=== PATIENT | female | born 1980 | race Caucasian/White ===

== ENCOUNTER 2018-02-25 00:35 | Observation (INO) | payer MEDICARE ==
[2018-02-25] MEDS ORDERED: Dexamethasone 10 MG/ML VIAL ONE (00:56)
[2018-02-25] MEDS ORDERED: Ondansetron ODT 4 MG TAB ONE (01:36)
[2018-02-25 02:51] VITALS: BMI 22.7
[2018-02-25] MEDS ORDERED: Ondansetron HCl/PF 4 MG/2 ML Vial IVP PRN (02:52)
[2018-02-25] MEDS ORDERED: Ondansetron ODT 4 MG TAB SL PRN (02:52)
[2018-02-25] MEDS: D5 1/2 NS w/20 mEq KCL 1,000 ML IV SCH ×3 (03:58→17:02)
[2018-02-25] MEDS ORDERED: Prevnar 13-Val Conj/PF 0.5 ML SYRINGE IM ONE (09:00)
[2018-02-25] MEDS ORDERED: Dexamethasone 10 MG/ML VIAL SLOW IVP SCH (10:00)
[2018-02-25] MEDS ORDERED: HYDROcodone/Acetaminophen 5/325 mg Tablet PO PRN (15:00)
[2018-02-25] MEDS ORDERED: HYDROcodone/Acetaminophen 10/325 mg Tablet PO PRN (15:00)
[2018-02-25] MEDS ORDERED: Acetaminophen 325 MG TAB PO PRN (15:00)
[2018-02-25] MEDS ORDERED: Ondansetron ODT 4 MG TAB PO PRN (15:00)
[2018-02-25] MEDS ORDERED: Dexamethasone 4 mg/ml Vial SLOW IVP SCH (15:15)
[2018-02-25] MEDS: metroNIDAZOLE 500 MG in Premix Bag 1 BAG IVPB SCH (18:29)
[2018-02-25] MEDS: Ondansetron HCl/PF 4 MG/2 ML Vial IVP PRN (19:10)
[2018-02-25] MEDS: Famotidine/PF 20 mg/2ml Vial SLOW IVP SCH (21:31)
[2018-02-25] MEDS: Amitriptyline HCl 25 MG TAB PO SCH (21:31)
[2018-02-25] MEDS: Dexamethasone 4 mg/ml Vial SLOW IVP SCH (21:38)
[2018-02-26] MEDS: D5 1/2 NS w/20 mEq KCL 1,000 ML IV SCH ×4 (00:29→21:28)
[2018-02-26] MEDS: metroNIDAZOLE 500 MG in Premix Bag 1 BAG IVPB SCH ×3 (00:30→12:12)
[2018-02-26] MEDS: Ondansetron HCl/PF 4 MG/2 ML Vial IVP PRN ×2 (01:12→12:43)
[2018-02-26 05:18] LABS: #Lymphocytes 0.6 thou/uL (1.20-3.40); #Monocytes 0.2 thou/uL (0.11-0.59); #Neutrophils 2.8 thou/uL (1.40-6.50); %Basophils 0.8 % (0.0-1.0); %Eosinophils 0.1 % (0.0-10.0); %Neutrophils 78.1 % (42.0-75.0); Hemoglobin 9.9 g/dL (12.0-16.0); Mean Corpuscular HGB CONC 33.2 g/dL (32.0-36.0); Mean Corpuscular Hemoglobin 31.3 pg (27.0-31.0); Mean Corpuscular Volume 94.3 fL (78.0-98.0); Mean Platelet Volume 7.7 fL (7.4-10.4); Platelet Count 201 thou/uL (130-400); RBC Distribution Width 12.4 % (11.5-14.5); Red Blood Cell (RBC) Count 3.17 mill/uL (4.20-5.40); White Blood Cell (WBC) Count 3.6 thou/uL (4.8-10.8)
[2018-02-26 05:44] LABS: ALT (SGPT) 26 U/L (8-55); AST (SGOT) 17 U/L (5-34); Albumin 3.4 g/dL (3.5-5.0); Alkaline Phosphatase 60 U/L (40-150); Anion Gap 12 mmol/L (10-20); BUN (Urea Nitrogen) 15 mg/dL (7.0-18.7); Bilirubin, Total 0.9 mg/dL (0.2-1.2); Calc. Creatinine Clearance 131 mL/min (70-130); Calcium 8.4 mg/dL (7.8-10.44); Carbon Dioxide 20 mmol/L (22-29); Cardiac Risk 3.5 (Less than 4.5); Chloride 107 mmol/L (98-107); Cholesterol 112 mg/dl (< 200 Desired); Estimated GFR-MDRD Greater than 90; Globulin 2.5 g/dL (2.4-3.5); Glucose 171 mg/dL (70-105); HDL Cholesterol 32 mg/dL (>60 Neg Risk); LDL Cholesterol, Calculated 66 mg/dL; Lipase 92 U/L (8-78); Magnesium 2.1 mg/dL (1.6-2.6); Potassium 4.1 mmol/L (3.5-5.1); Protein, Total 5.9 g/dL (6.0-8.3); Sodium 135 mmol/L (136-145); Triglycerides 72 mg/dL (Less than 150)
[2018-02-26] MEDS: Dexamethasone 4 mg/ml Vial SLOW IVP SCH ×3 (06:04→21:10)
[2018-02-26] MEDS: Hydroxychloroquine Sulfate 200 MG TAB PO SCH (08:30)
[2018-02-26] MEDS: Famotidine/PF 20 mg/2ml Vial SLOW IVP SCH ×2 (08:30→21:07)
[2018-02-26] MEDS: Leflunomide 10 mg Tablet PO SCH (08:30)
--- NOTE | 2018-02-26 10:00 | CON ---
DATE OF CONSULTATION: 02/25/2018 REFERRING PHYSICIAN: Dr. Rosa Lala, [facility] Hospitalist. REASON FOR CONSULTATION: Abdominal pain, nausea and vomiting and abdominal CAT scan showing what sydnee eared to be pancolitis. HISTORY OF PRESENT ILLNESS: Ms. Ya Gautam is a very pleasant 37-year-old female with a h istory of rheumatoid arthritis, fibromyalgia, and also Sjogren's syndrome. She also has history of s ystemic lupus, scleroderma. The patient does see a dural mechanic in [place] off and on. The nydia ent is on prednisone 2.5 mg once a day and also leflunomide and tramadol etc. 600. The patient was t reated with biological and she did not get relief with biological. The patient tells me she did resp ond to Rituxan, but however she is not able to take it because her insurance company does not approve her Rituxan. She used to take prednisone off and on, and now she is on maintenance dose of 2.5 mg o nce a day. The patient developed abdominal pain, which is cramping in nature; and some fever, nausea , and vomiting approximately 10 days ago. The pain was more diffuse and achy and at times cramping i n nature. She also had fever with nausea and vomiting. She came to [place] [facility] and had routine checkup done. It was felt that the patient probably needs a higher dose of prednisone and her predni sone was increased to 20 mg p.o. once a day and was sent home. The patient never felt well over the last 10 days. She has been having abdominal pain off and on and also had some diarrhea intermittentl y. Yesterday, her abdominal pain started getting lot worse and she actually passed out. The patient was brought to the ER by the family because of poor nutrition. The patient had no similar episodes in the past. The patient denies any hematochezia, any melena. The patient has had no previous GI pr oblem. Does have occasional episodes of food hanging in the esophagus because of scleroderma. She h ad no heartburn, no indigestion. No painful swallowing. The patient came to the ER and had abdomina l CAT scan. The CAT scan basically shows thickening of the mesentery and it was felt that the patien t has pancolitis. The patient is on IV steroids at the present time. She is n.p.o. Her abdominal p ain is much less than before. Apparently she received 2 mg of morphine earlier today and she said th e pain is a lot less. The patient has no relevant history. ALLERGIES: SULFA. SOCIAL HISTORY: The patient is employed. She does smoke less than one-half packet of cigarettes per day. Does not drink any alcohol. No illicit drug abuse. She did not feel like smoking because of her abdominal pain and nausea for over the last 10 days. MEDICAL ILLNESSES: 1. Rheumatoid arthritis. 2. Fibromyalgia. 3. Sjogren's syndrome. 4. Lupus erythematosus, scleroderma. SURGERIES: 1. Status post x3. 2. She has had recurrent surgery of both hands by Dr. Healy in July or August 2017. No o ther surgeries. FAMILY HISTORY: Both maternal grandmother and father had lung cancer, both were smokers. Mother has rheumatoid arthritis and her sister has early signs of rheumatoid arthritis. Mother also has celiac disease. MEDICATIONS: List reviewed which include dexamethasone, morphine sulfate, Zofran, potassium suppleme nt. Home medicines include tramadol, prednisone 20 once a day, leflunomide, etc. REVIEW OF SYSTEMS: A 10-point system reviewed. Constitutional: History of fever over the last nilo ral days off and on. No history of any weight loss. Central nervous system: No history of chronic headache, no syncope, no TIA, no seizure disorder. Respiratory system: No history of chronic cough, hemoptysis, dyspnea. Cardiovascular system: No chest pain, no palpitation. No dyspnea, orthopnea, or PND. Gastrointestinal: As per history of present illness. Genitourinary: No dysuria, hematuri a. Musculoskeletal: History of chronic arthralgias and muscle pain. Neuropsychiatric: Unremarkabl e. PHYSICAL EXAMINATION: GENERAL: The patient appears very comfortable. She is awake, alert, oriented to time, place, and pe rson. VITAL SIGNS: Afebrile. Pulse is 60, blood pressure 127/84. HEENT: Conjunctivae clear. NECK: Supple. No adenitis or thyromegaly noted. CARDIOVASCULAR SYSTEM: First and second heart sounds normal. LUNGS: Clear to auscultation. ABDOMEN: Abdomen is soft. Abdomen is nondistended. Abdomen is mildly tender diffusely. There is n o rebound or guarding. No organomegaly or masses. Bowel sounds normal. EXTREMITIES: Reveal no edema. LABORATORY DATA: Shows WBC 8200, hemoglobin 12, hematocrit 35, MCV 88.5, platelet count 217,000, neena ymorphs 83, bands 10, lymphocytes 3. Serum chemistries: Sodium 141, potassium 3, chloride 104, bic arb 19, BUN is 22, creatinine 0.71, glucose 116, lactic acid 2.2, calcium 9.1, bilirubin 1.7, AST 38, ALT 45, alkaline phosphatase 77, total protein 6.9, albumin 4.1, globulin 2.8. Lipase is slightly h igh at 153. Abdominal CAT scan showed some thickening of mesentery and it was felt the patient has pancolitis. T here are couple of small low-density lesions seen in right lobe of the liver, possibly liver cyst. S he has also borderline splenomegaly. CLINICAL IMPRESSION: A 37-year-old female with abdominal pain, history of fever, and also history of nausea and vomiting off and on. She also had some diarrhea off and on. The patient has h istory of rheumatoid arthritis, lupus, scleroderma. I am not sure if her symptoms are due to relapse of her autoimmune disease or some infectious pathology. She also has mildly elevated lipase of 153. RECOMMENDATIONS: 1. Continue present treatment. 2. Clear liquid diet and advance diet as tolerated. I will make further recommendations depending o n the hospital course.
[2018-02-26] MEDS: metroNIDAZOLE 500 MG TAB PO SCH ×2 (16:02→21:07)
--- NOTE | 2018-02-26 18:23 | PDOC.PN ---
- Subjective Encounter Start Date: 02/26/18 Encounter Start Time: 10:00 Pt seen for followup re: nausea and vomiting. Nausea is better. No chest pain , shortness of breath, fevers or chills. Abdo pain better. - Objective Resuscitation Status: Resuscitation Status FULL:Full Resuscitation MAR Reviewed: Yes Vital Signs & Weight: Vital Signs (12 hours) Temp Pulse Resp BP Pulse Ox 02/26/18 11:42 97.7 F 68 16 113/74 99 02/26/18 08:00 97.8 F 53 L 16 02/26/18 07:45 97.8 F 53 L 16 154/95 H 98 Weight Admit Weight 145 lb 3 oz Weight 145 lb 3 oz I&O: 02/25/18 02/26/18 02/27/18 06:59 06:59 06:59 Intake Total 1 3053 344.5 Balance 1 3053 344.5 Result Diagrams: 02/26/18 04:13 02/26/18 04:13 Additional Labs: Labs reviewed by me Phys Exam - Physical Examination Constitutional: NAD HEENT: moist MMs, sclera anicteric, oral pharynx no lesions, 2+ tonsils Neck: no nodes, no JVD, supple, full ROM Respiratory: no wheezing, no rales, no rhonchi, clear to auscultation bilateral Cardiovascular: RRR, no rub S1, S2 Gastrointestinal: soft, no distention, positive bowel sounds mild LLQ tenderness, no guarding or rigidity Neurological: moves all 4 limbs Psychiatric: normal affect, A&O x 3 Dx/Plan (1) Nausea and vomiting Code(s): R11.2 - NAUSEA WITH VOMITING, UNSPECIFIED Status: Acute Comment: Pt clinically improving, able to take oral meds and full fluid diet. (2) Mesenteric panniculitis Code(s): K65.4 - SCLEROSING MESENTERITIS Status: Acute Comment: switch antibiotics to oral (3) Chronic steroid use Code(s): [id number] - Status: Chronic Comment: Pt is on increased dose of steroids, continue dexamethasone (4) Rheumatoid arthritis Code(s): M06.9 - RHEUMATOID ARTHRITIS, UNSPECIFIED Status: Chronic Comment: stable (5) Sjogrens syndrome Code(s): M35.00 - SICCA SYNDROME, UNSPECIFIED Status: Chronic Comment: stable (6) Raynaud disease Code(s): I73.00 - RAYNAUD'S SYNDROME WITHOUT GANGRENE Status: Chronic Comment: stable (7) SLE (systemic lupus erythematosus) Code(s): M32.9 - SYSTEMIC LUPUS ERYTHEMATOSUS, UNSPECIFIED Status: Chronic Comment: stable (8) Fibromyalgia Status: Chronic Comment: stable - Plan * . Review of Systems - Review of Systems Constitutional: weakness. negative: fever, chills, sweats, malaise Respiratory: negative: Cough, Shortness of Breath, SOB with Excertion, Pleuritic Pain, Wheezing Cardiovascular: negative: chest pain, palpitations, orthopnea, paroxysmal nocturnal dyspnea, edema, light headedness Gastrointestinal: Nausea, Vomiting, Abdominal Pain. negative: Diarrhea, Constipation, Melena, Hematochezia Genitourinary: negative: Dysuria, Frequency, Incontinence, Hematuria, Retention Skin: negative: Rash, Lesions, Ari, Bruising - Medications/Allergies Allergies/Adverse Reactions: Allergies Allergy/AdvReac Type Severity Reaction Status Date / Time Sulfa (Sulfonamide Allergy Verified 02/25/18 03:44 Antibiotics) Medications: Current Medications Acetaminophen (Tylenol) 650 mg PO Q4H PRN PRN Reason: Headache/Fever or Pain Last Admin: 02/26/18 08:29 Dose: 650 mg Hydrocodone Bitart/Acetaminophen ([place] 10/325) 1 tab PO Q4H PRN PRN Reason: Severe Pain (7-10) Last Admin: 02/25/18 17:10 Dose: 1 tab Hydrocodone Bitart/Acetaminophen ([employer] [place] 5/325) 1 tab PO Q4H PRN PRN Reason: Moderate Pain (4-6) Amitriptyline HCl (Elavil) 25 mg PO HS [facility] Last Admin: 02/25/18 21:31 Dose: 25 mg Dexamethasone (Decadron) 10 mg SLOW IVP Q8HR [facility] Last Admin: 02/26/18 14:12 Dose: 10 mg Dicyclomine HCl (Bentyl) 10 mg IM QID PRN PRN Reason: GI Cramping Famotidine (Pepcid) 20 mg SLOW IVP Q12HR [facility] Last Admin: 02/26/18 08:30 Dose: Not Given Hydroxychloroquine Sulfate (Plaquenil) 200 mg PO DAILY [facility] Last Admin: 02/26/18 08:30 Dose: 200 mg Potassium [place]/Dextrose/Sod Cl (D5 1/2 Ns W/20 Meq Kcl) 1,000 mls @ 125 mls /hr IV .Q8H [facility] Last Admin: 02/26/18 10:52 Dose: 1,000 mls Leflunomide (Arava) 20 mg PO DAILY [facility] Last Admin: 02/26/18 08:30 Dose: 20 mg Levofloxacin (Levaquin) 500 mg PO 0600 [facility] Metronidazole (Flagyl) 500 mg PO TID [facility] Last Admin: 02/26/18 16:02 Dose: 500 mg Ondansetron HCl (Zofran Odt) 4 mg PO Q6H PRN PRN Reason: Nausea/Vomiting Ondansetron HCl (Zofran) 4 mg IVP Q6H PRN PRN Reason: Nausea/Vomiting Last Admin: 02/26/18 12:43 Dose: 4 mg
[2018-02-26] MEDS: Amitriptyline HCl 25 MG TAB PO SCH (21:07)
--- NOTE | 2018-02-27 01:23 | PRG ---
DATE OF SERVICE: 02/26/2018 SUBJECTIVE: Ms. Prashant Gautam is a very pleasant 37-year-old female hospitalized [facility] of abdominal pain, CAT scan findings shows pancolitis. She also has some low-grade fever off and o n. The patient was on clear liquid diet yesterday and did well. Today, her diet was advanced to reg ular diet. Abdominal pain is markedly improved. She has very mild discomfort. No nausea, except oc casionally. PHYSICAL EXAMINATION: GENERAL: Appears comfortable. VITAL SIGNS: Afebrile. Pulse is 68, blood pressure 113/74. CARDIOVASCULAR SYSTEM: First and second heart sounds normal. LUNGS: Clear to auscultation. ABDOMEN: Soft. Abdomen is nondistended. Abdomen is mildly tender across lower abdomen. No organom egaly or masses. CLINICAL IMPRESSION: 1. Pancolitis. 2. History of rheumatoid arthritis. 3. Scleroderma-lupus. She is on IV Levaquin and also IV steroids. She has family history of celiac disease, sister has celiac disease. She also has introduction on this. We will obtain celiac panel tomorrow.
[2018-02-27 05:01] VITALS: TEMP 97.7
[2018-02-27] MEDS: Dexamethasone 4 mg/ml Vial SLOW IVP SCH (06:07)
[2018-02-27] MEDS: D5 1/2 NS w/20 mEq KCL 1,000 ML IV SCH ×2 (06:10→15:15)
[2018-02-27] MEDS: metroNIDAZOLE 500 MG TAB PO SCH ×2 (08:26→15:15)
[2018-02-27] MEDS: Hydroxychloroquine Sulfate 200 MG TAB PO SCH (08:26)
[2018-02-27] MEDS: Leflunomide 10 mg Tablet PO SCH (08:26)
[2018-02-27] MEDS: Famotidine/PF 20 mg/2ml Vial SLOW IVP SCH (10:32)
--- NOTE | 2018-02-27 10:39 | PDOC.PN ---
- Subjective Encounter Start Date: 02/27/18 Encounter Start Time: 11:30 Subjective: Patient reports resolution of her abdominal pain. Minimal nausea and -: no vomiting since admit. Tolerating diet this AM. Ready to go home. Has -: prednisone at home and knows how to titrate down slowly. - Objective Resuscitation Status: Resuscitation Status FULL:Full Resuscitation MAR Reviewed: Yes Vital Signs & Weight: Vital Signs (12 hours) Temp Pulse Resp BP Pulse Ox 02/27/18 07:23 97.7 F 50 L 20 156/90 H 99 02/27/18 04:00 97.7 F 50 L 18 135/92 H 99 02/27/18 00:47 97.8 F 65 18 130/79 98 Weight Admit Weight 145 lb 3 oz Weight 145 lb 3 oz I&O: 02/26/18 02/27/18 02/28/18 06:59 06:59 06:59 Intake Total 3053 344.5 Balance 3053 344.5 Result Diagrams: 02/26/18 04:13 02/26/18 04:13 Phys Exam - Physical Examination Constitutional: NAD HEENT: moist MMs Respiratory: no wheezing, no rales, no rhonchi Cardiovascular: RRR, no significant murmur Gastrointestinal: soft, positive bowel sounds minimal tenderness, no guarding Musculoskeletal: no edema Neurological: non-focal, moves all 4 limbs Psychiatric: normal affect, A&O x 3 Dx/Plan (1) Mesenteric panniculitis Code(s): K65.4 - SCLEROSING MESENTERITIS Status: Acute Comment: Now or oral Levquin and Flagyl (2) Nausea and vomiting Code(s): R11.2 - NAUSEA WITH VOMITING, UNSPECIFIED Status: Acute Comment: Pt clinically improving, able to take oral meds and full fluid diet. (3) Chronic steroid use Code(s): [id number] - Status: Chronic Comment: Pt is on increased dose of steroids, stop IV dexamethasone and start oral prednisone (4) Fibromyalgia Status: Chronic Comment: stable (5) Raynaud disease Code(s): I73.00 - RAYNAUD'S SYNDROME WITHOUT GANGRENE Status: Chronic Comment: stable (6) Rheumatoid arthritis Code(s): M06.9 - RHEUMATOID ARTHRITIS, UNSPECIFIED Status: Chronic Comment: stable (7) SLE (systemic lupus erythematosus) Code(s): M32.9 - SYSTEMIC LUPUS ERYTHEMATOSUS, UNSPECIFIED Status: Chronic Comment: stable (8) Sjogrens syndrome Code(s): M35.00 - SICCA SYNDROME, UNSPECIFIED Status: Chronic Comment: stable - Plan cont current plan of care, continue antibiotics Ok to d/c home. 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 * . - Discharge Day Encounter end time: 11:50
[2018-02-27 11:10] VITALS: BP 134/88
--- NOTE | 2018-02-28 02:09 | DIS ---
PRIMARY CARE PHYSICIAN: [facility] in [place]. REASON FOR ADMISSION: Abdominal pain, nausea, and vomiting. DISCHARGE DIAGNOSES: 1. Mesenteric panniculitis. 2. Nausea and vomiting, resolved. 3. Chronic steroid use. 4. Fibromyalgia. 5. Raynaud's disease. 6. Rheumatoid arthritis. 7. Lupus. 8. Sjogren syndrome. PROCEDURES: CT of the abdomen and pelvis with contrast showing no evidence of appendicitis, borderli ne splenomegaly, probable mesenteric panniculitis, and indeterminate lesions of the liver. CONSULTATIONS: Gastroenterology, Dr. Yanez. SUMMARY OF HOSPITAL COURSE: This is a 37-year-old white female with a history of rheumatoid arthriti s, fibromyalgia, Sjogren syndrome, and lupus on chronic steroids and other immunosuppressants. She p resented to the [place] [facility] with fever, nausea, and vomiting starting about a week pr evious, pain got worse. She was seen at the [place] [facility], had an increased in her salma roids and was sent home. She returned about 10 days later, had been worsening abdominal pain, and al so with some diarrhea, so she had a CT scan of the abdomen which resolved and she was transferred for admission and GI consultation. Dr. Yanez was consulted. Patient was treated with antibiotics, steroids with improvement in her symptoms. She had resolution of her nausea, vomiting, and abdominal pain was markedly better, not requiring any pain medicines on the day of discharge. Dr. Beau shah etermined that this was likely related to her lupus and not primarily gastroenterological in origin. She was transitioned to oral antibiotics and was being discharged home. DISCHARGE MANAGEMENT: Discharged home. Follow up with her outpatient senior python developer in 1 week for a djustment of her steroids. ACTIVITY: As tolerated. DIET: Regular diet. DISCHARGE MEDICATIONS: 1. Levofloxacin 500 mg daily for 3 more days. 2. Metronidazole 500 mg 3 times a day for 3 more days. 3. Zofran 4 mg every 6 hours as needed for nausea and vomiting. 4. Prednisone 20 mg daily, separate packet dispensed. Patient is to resume her other home medications: 1. Amitriptyline 25 mg at night. 2. Plaquenil 200 mg daily. 3. Arava 20 mg daily.
--- NOTE | 2018-02-28 07:56 | PRG ---
DATE OF SERVICE: 02/27/2018 SUBJECTIVE: This is a 38-year-old female with history of scleroderma, lupus, rheumatoid ar thritis. Hospitalized with abdominal pain, nausea, vomiting and diarrhea. She was placed on systemi c steroids and symptoms markedly improved. She has no more abdominal pain. She is tolerating diet. She has one stool today, nausea and vomiting. PHYSICAL EXAMINATION: GENERAL: She appears comfortable, afebrile. VITAL SIGNS: Pulse is 57, blood pressure 134/88. HEENT: Conjunctivae clear. CARDIOVASCULAR SYSTEM: First and second heart sounds normal. LUNGS: Clear to auscultation. ABDOMEN: Soft. Abdomen is nontender. No organomegaly. No masses. RECOMMENDATIONS: The patient is going to be discharge home on systemic steroids. The patient will c ome back to me as needed.
[2018-02-28] MEDS ORDERED: predniSONE 20 MG TAB PO SCH (08:00)
[2018-02-28 13:10] LABS: EliA Celiac New Method **** NEW METHOD ****; Gliadin IgA Ab, Deamidated 2.9 EliAU/mL (<7 Negative); Gliadin IgG Ab, Deamidated Less than 0.4 EliAU/mL (<7 Negative); t-Transglutaminase (tTG) IgA 0.5 EliAU/mL (<7 Negative); t-Transglutaminase (tTG) IgG 0.8 EliAU/mL (<7 Negative)
== END 2018-02-27 14:47 | disposition home or self-care (01) ==
LOC: ERS 00:35 → T4-A 01:08
PROVIDERS: ADMIT Hospitalist; ATTEND Hospitalist
DX: K65.4 Sclerosing mesenteritis (principal); M79.7 Fibromyalgia; I73.00 Raynaud's syndrome without gangrene; M06.9 Rheumatoid arthritis, unspecified; M35.00 Sjogren syndrome, unspecified; F17.210 Nicotine dependence, cigarettes, uncomplicated; L93.0 Discoid lupus erythematosus; Z88.2 Allergy status to sulfonamides; Z79.52 Long term (current) use of systemic steroids
CPT/HCPCS: 80053; 80061; 83516; 83690; 83735; 85025; 96361 ×2; 96365; 96366; 96367; 96375 ×2; 96376 ×3; 97139; 99285; 99406; G0378 ×3; 36415; 90471; 90670; 96374; G0009; J1100; J1956; J2270; J2405; Q0162; S0028

== ENCOUNTER 2018-07-30 17:00 | Inpatient (IN) | payer MEDICARE ==
[2018-07-30] MEDS ORDERED: Ondansetron PF 4 MG/2 ML Vial IVP PRN (17:30)
[2018-07-30] MEDS ORDERED: hydrALAZINE 20 MG/ML VIAL SLOW IVP PRN (17:30)
[2018-07-30] MEDS ORDERED: Ondansetron ODT 4 MG TAB PO PRN (17:30)
[2018-07-30] MEDS ORDERED: Acetaminophen 1,000 MG in Premix Bag 1 BAG IVPB PRN (17:34)
[2018-07-30] MEDS ORDERED: Ondansetron ODT 8 MG TAB SL PRN (17:34)
[2018-07-30] MEDS ORDERED: Morphine 2 MG/ML SYRINGE ONE (18:01)
[2018-07-30] MEDS ORDERED: MEROPENEM 1 GM/50 ML 1 GM in Premix Bag 1 BAG IVPB SCH (18:15)
[2018-07-30 19:21] LABS: INR-International Normal Ratio 1.1; Prothrombin Time 14.5 SEC (12.0-14.7)
[2018-07-30 19:22] LABS: PTT 33.6 SEC (22.9-36.1)
[2018-07-30 20:04] VITALS: BMI 22.8
[2018-07-30] MEDS: Lactated Ringer's 1,000 ML IV SCH (20:14)
[2018-07-30] MEDS: Famotidine/PF 20 mg/2ml Vial SLOW IVP SCH (20:19)
[2018-07-30] MEDS ORDERED: Enoxaparin Sodium 40 MG/0.4 ML SYRINGE SC SCH (21:00)
[2018-07-30] MEDS ORDERED: Amitriptyline HCl 25 MG TAB PO SCH (21:00)
[2018-07-30] MEDS: Hydrocortisone Sod Succ/PF 100 mg/2 ml Vial IVP SCH (21:07)
[2018-07-30] MEDS: Ketorolac Tromethamine 30 MG/ML VIAL IVP PRN (21:25)
--- NOTE | 2018-07-31 00:12 | HP ---
HISTORY OF PRESENT ILLNESS: Prashant Kirk is a 38-year-old female transferred from [facility] to our emergency room with biliary pancreatitis. Ultrasound there in [place] revealed choleli thiasis, positive sonographic Avelar sign, 3 mm bile duct. Her lipase was elevated, liver function t ests normal. She has had pains episodically the last few weeks. She thought this episode was just d ue to her lupus flare up that she had pains elsewhere. She is being admitted for intravenous fluid h ydration, antibiotics, and laparoscopic cholecystectomy, cholangiogram tomorrow. Risks and benefits explained, questions answered. ALLERGIES: SULFA. TOBACCO: One half pack per day. ALCOHOL: None. PAST SURGICAL HISTORY: Three C-sections, tonsillectomy, adenoidectomy, hand surgery. PAST MEDICAL HISTORY: Systemic discoid lupus, rheumatoid arthralgias, myositis, scleroderma, Raynaud 's. 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 REVIEW OF SYSTEMS: Ten-point noncontributory. MEDICATIONS: P.r.n. tramadol, prednisone 20 mg a.m. with meals and 2.5 mg p.o. q.a.m. with meals, Fl agyl 500 mg t.i.d., Zofran p.r.n. She had Levaquin this morning at 6:00, Arava 20 mg daily, Plaqueni l 200 mg daily, Elavil 25 mg at bedtime. PHYSICAL EXAMINATION: VITAL SIGNS: Blood pressure 120/79, pulse 84, respirations 18, temperature 97.7, weight 66 kilograms . HEAD, EYES, EARS, NOSE AND THROAT: Unremarkable. LUNGS: Clear to auscultation. CARDIAC: Regular rate and rhythm without murmur or gallop. ABDOMEN: Soft, tenderness in right upper quadrant to deep palpation. Negative Avelar's. EXTREMITIES: Unremarkable. LABORATORY DATA: Laboratories from [place] 2:00 this afternoon, white count 6, hemoglobin 11.7. Sodium 138, potassium 3.9, BUN and creatinine 16 and 0.64, GFR 90, bilirubin 1.1, AST and ALT 26 an d 33, alkaline phosphatase 105, lipase . ASSESSMENT AND PLAN: Biliary pancreatitis. Plan IV fluid hydration relatively n.p.o. Plan laparoscopic cholecystectomy. Cholangiogram is tomor row. Risks and benefits discussed, she consents.
[2018-07-31] MEDS: Lactated Ringer's 1,000 ML IV SCH ×3 (01:02→05:00)
[2018-07-31] MEDS: Hydrocortisone Sod Succ/PF 100 mg/2 ml Vial IVP SCH (05:46)
[2018-07-31] MEDS ORDERED: Non-Formulary Item 1 EACH (Prednisone [Prednisone] 2.5 MG) PO SCH (08:00)
[2018-07-31] MEDS ORDERED: Iothalamate Meglumine 60% 50 ML VIAL FS ONE (08:47)
[2018-07-31] MEDS ORDERED: Bupivacaine HCl 0.5%/Epinephrine 1:200,000/PF 30 ml Vial ONE (08:47)
[2018-07-31] MEDS ORDERED: Fentanyl 100 MCG/2 ML VIAL ONE ×3 (08:49→10:51)
[2018-07-31] MEDS ORDERED: Hydroxychloroquine Sulfate 200 MG TAB PO SCH (09:00)
[2018-07-31] MEDS ORDERED: Leflunomide 10 mg Tablet PO SCH (09:00)
[2018-07-31] MEDS: Famotidine/PF 20 mg/2ml Vial SLOW IVP SCH (10:00)
[2018-07-31] MEDS ORDERED: Promethazine HCl 25 MG/ML VIAL ONE (10:20)
[2018-07-31] MEDS ORDERED: Ondansetron ODT 8 MG TAB PO PRN (10:22)
[2018-07-31] MEDS ORDERED: traMADol HCl 50 MG TAB PO PRN ×2 (10:22)
[2018-07-31] MEDS ORDERED: Acetaminophen 500 MG TAB PO PRN (10:22)
[2018-07-31] MEDS ORDERED: Ondansetron ORAL SOLN. 4 MG/5 ML UDCUP PO PRN (10:22)
[2018-07-31] MEDS ORDERED: Ondansetron HCl/PF 4 MG/2 ML Vial IVP PRN (10:25)
[2018-07-31] MEDS ORDERED: Promethazine HCl 25 MG/ML VIAL IM PRN (10:25)
[2018-07-31] MEDS ORDERED: Promethazine HCl 25 MG/ML VIAL SLOW IVP PRN (10:25)
--- NOTE | 2018-07-31 10:56 | DIS ---
DATE OF ADMISSION: 07/30/2018 DATE OF DISCHARGE: 07/31/2018 DISCHARGE DIAGNOSES: 1. Biliary pancreatitis. 2. Systemic lupus erythematosus. 3. Sjogren's syndrome. 4. Fibromyalgia. POSTOPERATIVE DIAGNOSES: 1. Biliary pancreatitis. 2. Systemic lupus erythematosus. 3. Sjogren's syndrome. 4. Fibromyalgia. PROCEDURE: Ultrasound of the gallbladder, gallstones, a 3 mm bile duct, normal LFTs. Laparoscopic cholecystectomy. Cholangiogram was normal. HISTORY: A 38-year-old female with history of biliary colic, presents with biliary pancreatitis, adm itted overnight, hydrated, antibiotics. She underwent the above procedure. Postoperatively, dischar ged home to resume home medications as well as Ultram #20 with [address] Yo's office in 2-3 weeks. Diet and activity as tolerated.
--- NOTE | 2018-07-31 11:39 | OP ---
DATE OF PROCEDURE: 07/31/2018 PREOPERATIVE DIAGNOSIS: Biliary pancreatitis. POSTOPERATIVE DIAGNOSIS: Biliary pancreatitis. PROCEDURE: Laparoscopic video cholecystectomy, negative intraoperative cholangiograms, fluoroscopy u sed, nondilated bile duct without filling defect with good empty into the duodenum. SURGEON: Ravin Yo M.D. ANESTHESIA: General. Local 0.5% Marcaine with epinephrine, 30 mL total volume used. PROCEDURE: The patient was taken to the operating room under general anesthesia, abdomen was prepare d with ChloraPrep, draped in routine fashion. Local anesthetic infiltrated into skin and subcutaneou s tissue about each port site. Infraumbilical incision made and pneumoperitoneum to 15 mmHg obtained with the Veress needle, replacing it with a 5 port and video laparoscope inserted. Right subcostal incision made subxiphoid, an 11 mm port placed in subcostal, midclavicular and [address] Liver appeared to be normal. Gallbladder slightly distended and inflamed. Fundus of gallbladder grasped and reflected cephalad. Omental adhesions taken down with Hemostasis gained with the cauter y, identifying amputated and reflected laterally. Cystic artery and duct dissected free. Critical v iew obtained. Cystic artery double clipped proximally. Cystic duct singly clipped on the gallbladde r side. Opening made in the cystic duct, cholangiocath inserted and cholangiogram was obtained using fluoroscopy revealing the above findings. Cholangiocath removed. Cystic duct stump doubly clipped. Cystic artery and duct divided. The gallbladder dissected free from liver bed obtaining good hemos tasis prior to division of final peritoneal attachments. Gallbladder and contents removed and submit zita to Pathology. Good hemostasis ensured with the cautery. Irrigant and pneumoperitoneum evacuated . all skin incisions approximated with interrupted subdermal 4-0 Monocryl and DermaGlue applyaya dKsenia
[2018-07-31] MEDS: Ketorolac Tromethamine 30 MG/ML VIAL IVP PRN (14:31)
[2018-07-31 16:45] VITALS: BP 119/75; TEMP 97.9
[2018-07-31] MEDS ORDERED: Lidocaine 1% PF 5 ML VIAL ONE (16:47)
[2018-07-31] MEDS ORDERED: Ketorolac Tromethamine 30 MG/ML VIAL ONE (16:47)
[2018-07-31] MEDS ORDERED: Dexamethasone 20 MG/5 ML VIAL ONE (16:47)
[2018-07-31] MEDS ORDERED: Ondansetron PF 4 MG/2 ML Vial ONE (16:47)
[2018-07-31] MEDS ORDERED: PROPOFOL 200 MG/20 ML VIAL ONE (16:47)
[2018-07-31] MEDS ORDERED: Glycopyrrolate 0.2 MG/ML 5 ML SYRINGE ONE (16:47)
--- NOTE | 2018-07-31 18:08 | RAD ---
INTRAOPERATIVE CHOLANGIOGRAM: 07/31/18 HISTORY: Status post cholecystectomy. EXPOSURE: 4 seconds. 0.506 mGy. FINDINGS: Single fluoroscopic view demonstrates cannulation of a normal caliber intra and extrahepatic biliary system. Contrast is noted in the duodenum. IMPRESSION: Unremarkable intraoperative cholangiogram. POS: MARCELA
[2018-07-31] MEDS ORDERED: azaTHIOprine 50 MG TAB PO SCH (21:00)
[2018-08-01] MEDS ORDERED: NIFEdipine XL 30 MG TAB PO SCH (09:00)
[2018-08-04] MEDS ORDERED: Ibuprofen 600 MG TAB PO PRN (23:00)
== END 2018-07-31 17:45 | disposition home or self-care (01) | DRG 419 ==
LOC: ERS 17:00 → T4-A 17:33
PROVIDERS: ADMIT Specialist; ATTEND Specialist
PROC: 0FT44ZZ Resection of Gallbladder, Percutaneous Endoscopic Approach (ICD-10-PCS; principal; 2018-07-31)
PROC: BF111ZZ Fluoroscopy of Biliary and Pancreatic Ducts using Low Osmolar Contrast (ICD-10-PCS; 2018-07-31)
DX: K85.10 Biliary acute pancreatitis without necrosis or infection (principal); M32.9 Systemic lupus erythematosus, unspecified; M35.00 Sjogren syndrome, unspecified; M79.7 Fibromyalgia
CPT/HCPCS: 47532; 85610; 85730; 88304; 93005; 96374; 96375; J0131; J0670; J1100; J1610; J1650; J1720; J1885; J1956; J2001; J2185; J2270; J2405; J2550; J2704; J3010; Q9961; S0028

== ENCOUNTER 2018-08-06 14:16 | Inpatient (IN) | payer MEDICARE ==
[2018-08-06] MEDS ORDERED: hydrALAZINE 20 MG/ML VIAL SLOW IVP PRN (16:00)
[2018-08-06] MEDS ORDERED: Acetaminophen 1,000 MG in Premix Bag 1 BAG IVPB PRN (16:03)
[2018-08-06] MEDS ORDERED: Ondansetron ODT 8 MG TAB SL PRN (16:03)
[2018-08-06] MEDS ORDERED: Ondansetron ODT 4 MG TAB PO PRN (16:03)
[2018-08-06 16:05] VITALS: BMI 22.8
[2018-08-06] MEDS: Ketorolac Tromethamine 30 MG/ML VIAL IVP PRN (17:03)
[2018-08-06] MEDS: Lactated Ringer's 1,000 ML IV SCH ×2 (17:05→20:28)
[2018-08-06] MEDS ORDERED: traMADol HCl 50 MG TAB PO PRN (17:45)
[2018-08-06] MEDS ORDERED: Lactated Ringer's 1,000 ML IV SCH (17:45)
[2018-08-06] MEDS: Morphine 4 MG/ML VIAL SLOW IVP PRN ×2 (19:01→23:40)
[2018-08-06] MEDS: Ondansetron PF 4 MG/2 ML Vial IVP PRN (19:45)
--- NOTE | 2018-08-06 20:22 | NM ---
HEPATOBILIARY SCAN: HISTORY: Evaluation for bile leak post cholecystectomy. TECHNIQUE: The examination was performed using 5.5 millicuries of 99m technetium mebrofenin. FINDINGS: This shows a normal distribution of the radiopharmaceutical within the liver. At 21 minutes, there i s contrast seen in the region of the gallbladder fossa. Bowel activity is seen by approximately 41 m inutes. IMPRESSION: Evidence of bile leak, with radiopharmaceutical seen within the gallbladder fossa. Findings telephoned to Dr. Yo. CODE CR POS: MARCELA
[2018-08-06] MEDS: azaTHIOprine 50 MG TAB PO SCH (20:26)
[2018-08-06] MEDS: Enoxaparin Sodium 40 MG/0.4 ML SYRINGE SC SCH (20:26)
[2018-08-06] MEDS: Hydroxychloroquine Sulfate 200 MG TAB PO SCH (20:27)
[2018-08-06] MEDS: Famotidine/PF 20 mg/2ml Vial SLOW IVP SCH (20:28)
--- NOTE | 2018-08-07 01:50 | HP ---
HISTORY OF PRESENT ILLNESS: Prashant Gonzales is a 38-year-old female. On 07/31/2018, she underwent a laparoscopic video cholecystectomy, normal cholangiograms for biliary pancreatitis. Her bile ducts were very small. There was good flow into the duodenum. Pathology of the gallbladder revealed acute on chronic cholecystitis. Prior to her operation, bilirubin slightly elevated at 1.4 to 1.7 on 07/30/2018; just the morning of her surgery, bilirubin was 1.1. The patient presented to [place] and was transferred here. She states since her surgery she has had persistent epigastric pain and nausea. On evaluation in [place], her bilirubin was 2.5, AST 38, ALT 56, alkaline phosphatase 465, and lipase 118. Prior to her operation, her lipase was 1200. She did undergo a repeat ultrasound of her gallbladder today and is read by Dr. Singh, with a bile duct of 3 mm, surgically absent gallbladder. There is no evidence of fluid. There is no ductal dilatation. ALLERGIES: SULFA. SOCIAL HISTORY: Tobacco, pack per day. Alcohol, none. PAST SURGICAL HISTORY: Recent laparoscopic cholecystectomy and cholangiograms, three C-sections, tonsillectomy and adenoidectomy, hand surgery in the past. PAST MEDICAL HISTORY: Lupus, myositis, scleroderma, and Raynaud's. 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 MEDICATIONS: 1. P.r.n. tramadol. 2. Prednisone with meals. 3. Flagyl. 4. Zofran. 5. Plaquenil. REVIEW OF SYSTEMS: Ten-point noncontributory. PHYSICAL EXAMINATION: VITAL SIGNS: Height 5 feet 7 inches, weight 146 pounds, 22 BMI, temperature 98.6 degrees, pulse 64, and blood pressure 156/87. HEAD, EYES, EARS, NOSE, AND THROAT: Unremarkable. LUNGS: Clear to auscultation. CARDIAC: Regular rhythm without murmur or gallop. ABDOMEN: Soft. Mild tenderness in epigastrium, right upper quadrant. Surgical trocar sites well healed. No wound problems. EXTREMITIES: Unremarkable. ASSESSMENT AND PLAN: 1. Postoperative elevation in her bilirubin with normal bile duct caliber. We would plan IV fluid bolus, HIDA scan, although without fluid collection seen in her ultrasound, I think a bile leak is unlikely. We will consult Gastroenterology. We placed her on intravenous antibiotics. 2. Lupus. Job ID: [id number]
[2018-08-07] MEDS: Morphine 4 MG/ML VIAL SLOW IVP PRN ×5 (02:40→21:34)
[2018-08-07] MEDS: Ondansetron PF 4 MG/2 ML Vial IVP PRN ×3 (02:45→20:20)
[2018-08-07] MEDS: Lactated Ringer's 1,000 ML IV SCH ×2 (06:16→22:21)
[2018-08-07] MEDS ORDERED: Iothalamate Meglumine 60% 50 ML VIAL FS ONE (07:18)
[2018-08-07] MEDS ORDERED: Indomethacin 50 MG SUPP ONE (07:18)
[2018-08-07 07:30] LABS: #Eosinphils 0.1 thou/uL (0.0-0.7); #Lymphocytes 0.2 thou/uL (1.20-3.40); #Monocytes 0.3 thou/uL (0.11-0.59); #Neutrophils 7.9 thou/uL (1.40-6.50); %Basophils 0.4 % (0.0-1.0); %Eosinophils 0.7 % (0.0-10.0); %Lymphocytes 2.5 % (21.0-51.0); %Monocytes 3.7 % (0.0-10.0); %Neutrophils 92.7 % (42.0-75.0); Hemoglobin 10.6 g/dL (12.0-16.0); Mean Corpuscular HGB CONC 33.6 g/dL (32.0-36.0); Mean Corpuscular Hemoglobin 32.5 pg (27.0-31.0); Mean Corpuscular Volume 96.9 fL (78.0-98.0); Mean Platelet Volume 7.1 fL (7.4-10.4); Platelet Count 322 thou/uL (130-400); Red Blood Cell (RBC) Count 3.25 mill/uL (4.20-5.40); White Blood Cell (WBC) Count 8.5 thou/uL (4.8-10.8)
[2018-08-07] MEDS ORDERED: Fentanyl 100 MCG/2 ML VIAL ONE (07:45)
[2018-08-07 07:50] LABS: ALT (SGPT) 101 U/L (8-55); AST (SGOT) 153 U/L (5-34); Albumin 3.4 g/dL (3.5-5.0); Alkaline Phosphatase 482 U/L (40-150); Anion Gap 17 mmol/L (10-20); BUN (Urea Nitrogen) 7 mg/dL (7.0-18.7); Bilirubin, Total 2.8 mg/dL (0.2-1.2); Calc. Creatinine Clearance 145 mL/min (70-130); Calcium 8.7 mg/dL (7.8-10.44); Carbon Dioxide 15 mmol/L (22-29); Chloride 111 mmol/L (98-107); Estimated GFR-MDRD Greater than 90; Globulin 2.7 g/dL (2.4-3.5); Potassium 3.1 mmol/L (3.5-5.1); Protein, Total 6.1 g/dL (6.0-8.3); Sodium 140 mmol/L (136-145)
[2018-08-07] MEDS ORDERED: HYDROmorphone 2 MG/ML VIAL ONE (07:50)
[2018-08-07 07:54] LABS: Glucose 52 mg/dL (70-105)
[2018-08-07] MEDS ORDERED: Ondansetron HCl/PF 4 MG/2 ML Vial IVP PRN (09:17)
[2018-08-07] MEDS ORDERED: Promethazine HCl 25 MG/ML VIAL IM PRN (09:17)
[2018-08-07] MEDS ORDERED: Promethazine HCl 25 MG/ML VIAL SLOW IVP PRN (09:17)
[2018-08-07] MEDS ORDERED: HYDROmorphone 2 MG/ML VIAL SLOW IVP PRN (09:17)
[2018-08-07] MEDS ORDERED: Meperidine HCl/PF 25 MG/ML VIAL SLOW IVP PRN (09:17)
--- NOTE | 2018-08-07 09:46 | CON ---
DATE OF CONSULTATION: 08/06/2018 REASON FOR CONSULTATION: Abdominal pain, evidence of bile leak on HIDA scan. HISTORY OF PRESENT ILLNESS: Prashant Gonzales is a very pleasant 38-year-old female with a history of pancreatitis in March of 2018. The patient underwent laparoscopic cholecystectomy with Dr. Yo a week ago. She was discharged subsequently. The patient is having abdominal pain since discharge. The pain is predominantly over the right upper quadrant. She had some mild nausea and poor appetite. She had no fever or chills. She came to see Dr. Yo and hospitalized. She had a HIDA scan done later this evening. The HIDA scan showed evidence of bile leak. I was asked to see the patient by Dr. Yo because of the bile leak and possible ERCP and papillotomy. ALLERGIES: SULFA. SOCIAL HISTORY: The patient . She does smoke less than 1/2 packet of cigarettes per day. She does not drink any alcohol. No history of drug abuse. PAST MEDICAL HISTORY: 1. Rheumatoid arthritis. 2. Fibromyalgia. 3. Sjogren syndrome. 4. Questionable history of lupus erythematosus, scleroderma. 5. Pancreatitis in February of 2018. PAST SURGICAL HISTORY: 1. Status post laparoscopic cholecystectomy with negative cholangiogram a week ago by Dr. Ravin Yo. 2. . PHYSICAL EXAMINATION: GENERAL: The patient appears ill. She is in no distress. VITAL SIGNS: Afebrile. Pulse is 63, blood pressure 152/86. Mildly icteric. NECK: Supple. No adenitis or thyromegaly. CARDIOVASCULAR: First and second heart sounds heard. LUNGS: Clear to ausculation. ABDOMEN: Soft. Abdomen is nondistented. Abdomen is tender over the periumbilical area, epigastric area and right upper quadrant. There is no rebound or guarding. Bowel sounds are active. LABORATORY DATA: From today WBC 3500, hemoglobin 10.5, hematocrit 31.7, MCV 94.3, platelet count 387, polymorphs 75, lymphocytes 7, monocytes 10. Serum chemistries; normal lytes, BUN is 8, creatinine is 0.57, bilirubin is 2.5, AST 38, ALT 56, alkaline phosphatase 465. HIDA scan today shows evidence of bile leak. The lipase is at 118. CLINICAL IMPRESSION: A 38-year-old female status post laparoscopic cholecystectomy, presented with abdominal pain and abdominal LFTs. The HIDA done scan today showed evidence of bile leak. She is afebrile and she is not septic. PLAN: ERCP, papillotomy and stent placement. I had a long talk with Ms. Kirk, explaining about the procedure in detail including the procedure risks like pancreatitis, sepsis and failure to cannulate, bleeding, perforation. She fully understood the procedure and agreed. I will plan the ERCP tomorrow. Job ID: [id number]
--- NOTE | 2018-08-07 10:13 | RAD ---
ERCP: History: Biliary obstruction. FINDINGS: Seven intraoperative C-arm images obtained during ERCP procedure. Images demonstrate catheterization injection of the common bile duct. There has been placement of an endo biliary stent extending from the common bile duct into the duodenum. IMPRESSION: Placement of intra biliary stent. POS: MARGARITO
[2018-08-07] MEDS: Famotidine/PF 20 mg/2ml Vial SLOW IVP SCH (13:22)
[2018-08-07] MEDS: Leflunomide 10 mg Tablet PO SCH (13:22)
[2018-08-07] MEDS: NIFEdipine XL 30 MG TAB PO SCH (13:23)
[2018-08-07] MEDS: Hydroxychloroquine Sulfate 200 MG TAB PO SCH ×2 (13:23→21:36)
[2018-08-07] MEDS: azaTHIOprine 50 MG TAB PO SCH ×2 (13:26→21:35)
[2018-08-07] MEDS: Ketorolac Tromethamine 30 MG/ML VIAL IVP PRN (13:34)
--- NOTE | 2018-08-07 16:02 | OP ---
DATE OF PROCEDURE: 08/07/2018 OPERATIVE PROCEDURES: 1. Endoscopic retrograde cholangiopancreatography with papillotomy. 2. 10 x 9 biliary stent placement. PREOPERATIVE DIAGNOSIS: Bile leak. POSTOPERATIVE DIAGNOSIS: Bile leak. DESCRIPTION OF PROCEDURE: The patient was intubated and was given sedation by Anesthesia Department. The patient was transferred from the stretcher to the fluoroscopic table. The patient was turned onto the left lateral position and laid on the side of the stomach. A Pentax video duodenoscope under direct vision was passed down the oropharynx past the GE junction into the descending duodenum. The patient did have some bile in the stomach, and also could see some bile in the duodenum. The papilla was identified. The papilla was cannulated with a guidewire selecting the common bile duct. Injection of the contrast did show extravasation into the gallbladder fossa. The duct was really not dilated. A generous papillotomy was made at 12 o'clock position. Following the papillotomy, the papillotome was exchanged with a catheter. Over the catheter, a biliary stent, size 10 x 9, was placed into the bile duct without any difficulty. The scope was removed. RECOMMENDATIONS: 1. Clear liquid diet. 2. Advance diet as tolerated. 3. Repeat ERCP with stent removal in 1 month. Job ID: [id number]
[2018-08-07] MEDS ORDERED: Dexamethasone 20 MG/5 ML VIAL ONE (16:30)
[2018-08-07] MEDS ORDERED: PROPOFOL 200 MG/20 ML VIAL ONE (16:30)
[2018-08-07] MEDS ORDERED: Ondansetron PF 4 MG/2 ML Vial ONE (16:30)
[2018-08-07] MEDS ORDERED: Succinylcholine Chloride 20 MG/ML 10 ml SYRINGE FS ONE (16:30)
[2018-08-07] MEDS ORDERED: PHENYLEPHRINE-NS 100 MCG/ML 10 ML SYRINGE ONE (16:30)
[2018-08-07] MEDS ORDERED: Lidocaine 1% PF 5 ML VIAL ONE (16:30)
--- NOTE | 2018-08-07 21:24 | PRG ---
DATE OF SERVICE: 08/07/2018 TYPE OF REPORT: Post-Procedure Followup Visit Note TIME: 7:30 p.m. SUBJECTIVE: This is a 38-year-old female, who had undergone a laparoscopic cholecystectomy a week ago. Presented with abdominal pain and abnormal LFTs. She had a HIDA scan yesterday, which revealed bile leak. She had an ERCP with stent placement this morning. She appears comfortable. She is actually feeling better. Her abdominal pain is mild . No nausea, no vomiting. Abdominal exam is benign. RECOMMENDATIONS: 1. Diet as tolerated. 2. From a GI standpoint, hopefully, she can be discharged home tomorrow. She will come back . Job ID: [id number]
[2018-08-07] MEDS: Enoxaparin Sodium 40 MG/0.4 ML SYRINGE SC SCH (21:36)
[2018-08-08] MEDS: Morphine 4 MG/ML VIAL SLOW IVP PRN ×3 (00:25→08:37)
[2018-08-08] MEDS: Acetaminophen 500 MG TAB PO PRN ×2 (00:34→08:37)
[2018-08-08 06:08] LABS: #Lymphocytes 0.4 thou/uL (1.20-3.40); #Monocytes 0.4 thou/uL (0.11-0.59); #Neutrophils 8.9 thou/uL (1.40-6.50); %Basophils 0.1 % (0.0-1.0); %Eosinophils 0.3 % (0.0-10.0); %Lymphocytes 3.8 % (21.0-51.0); %Monocytes 3.7 % (0.0-10.0); %Neutrophils 92.2 % (42.0-75.0); Hemoglobin 9.4 g/dL (12.0-16.0); Mean Corpuscular HGB CONC 33.2 g/dL (32.0-36.0); Mean Corpuscular Volume 96.4 fL (78.0-98.0); Mean Platelet Volume 6.9 fL (7.4-10.4); Platelet Count 274 thou/uL (130-400); RBC Distribution Width 13.2 % (11.5-14.5); Red Blood Cell (RBC) Count 2.95 mill/uL (4.20-5.40); White Blood Cell (WBC) Count 9.6 thou/uL (4.8-10.8)
[2018-08-08 06:31] LABS: ALT (SGPT) 82 U/L (8-55); AST (SGOT) 74 U/L (5-34); Albumin 2.9 g/dL (3.5-5.0); Alkaline Phosphatase 326 U/L (40-150); Anion Gap 11 mmol/L (10-20); BUN (Urea Nitrogen) 6 mg/dL (7.0-18.7); Bilirubin, Total 2.7 mg/dL (0.2-1.2); Calc. Creatinine Clearance 148 mL/min (70-130); Carbon Dioxide 22 mmol/L (22-29); Chloride 105 mmol/L (98-107); Estimated GFR-MDRD Greater than 90; Globulin 2.2 g/dL (2.4-3.5); Glucose 104 mg/dL (70-105); Protein, Total 5.1 g/dL (6.0-8.3); Sodium 135 mmol/L (136-145)
[2018-08-08] MEDS: Lactated Ringer's 1,000 ML IV SCH ×2 (07:31→17:47)
[2018-08-08] MEDS: NIFEdipine XL 30 MG TAB PO SCH (08:21)
[2018-08-08] MEDS: Hydroxychloroquine Sulfate 200 MG TAB PO SCH ×2 (08:23→20:53)
[2018-08-08] MEDS: azaTHIOprine 50 MG TAB PO SCH ×2 (08:24→20:53)
[2018-08-08] MEDS: Leflunomide 10 mg Tablet PO SCH (08:33)
--- NOTE | 2018-08-08 11:54 | PRG ---
DATE OF SERVICE: 08/08/2018 SUBJECTIVE: Ms. Kirk is doing well today. She had a successful ERCP, sphincterotomy, and stent placement by Dr. Yanez yesterday for her bile leak. She was seen last night, hoping to be able to discharge home, but she had too much nausea with her immunosuppression from her lupus. It was felt best to observe her overnight. OBJECTIVE: VITAL SIGNS: Overnight, she had a temperature to 100.9 degrees, this morning is 98.5 degrees, heart rate 90, blood pressure 98/62. LUNGS: Clear to auscultation. CARDIAC: Regular rate and rhythm without murmur or gallop. ABDOMEN: Soft. Good bowel sounds. Nondistended and nontender. Large surgical laparoscopic wounds well healed. No wound problems. LABORATORY DATA: This morning, her white count is 9, hemoglobin 9.4, sodium 135, potassium 3.0. Bilirubin is about the same today, it was yesterday 2.7. Transaminases are improved. ASSESSMENT AND PLAN: Bile leak post laparoscopic cholecystectomy, control with sphincterotomy, stent placed by Dr. Yanez. Follow up with Dr. Yanez in one week. Due to her immunosuppression, we will send her home on Levaquin 500 mg a day, and diet as tolerated. There are no activity restrictions. She can shower and bathe as needed. She will follow up with me in 2 to 3 weeks, and Dr. Yanez in four weeks. Plan discharge home later this afternoon. Job ID: [id number]
[2018-08-08] MEDS: Ondansetron PF 4 MG/2 ML Vial IVP PRN ×2 (12:16→18:46)
[2018-08-08] MEDS: traMADol HCl 50 MG TAB PO PRN (16:25)
[2018-08-08] MEDS: Enoxaparin Sodium 40 MG/0.4 ML SYRINGE SC SCH (20:53)
[2018-08-09] MEDS: Ondansetron PF 4 MG/2 ML Vial IVP PRN ×2 (00:59→23:16)
--- NOTE | 2018-08-09 04:48 | DIS ---
DATE OF ADMISSION: 08/06/2018 DATE OF DISCHARGE: 08/08/2018 DISCHARGE DIAGNOSES: Bile leak status post laparoscopic cholecystectomy on 07/31/2018, performed for biliary pancreatitis and cholelithiasis, at that time cholangiograms were normal. Liver function tests preoperatively minimally elevated bilirubin and normalized prior to laparoscopic cholecystectomy. PROCEDURE DURING THIS HOSPITALIZATION: Ultrasound of the gallbladder, noting normal bile duct caliber, transaminases minimally elevated in [place], mild elevation in her bilirubin. HIDA scan at this hospitalization revealed a bile leak, consultation with Dr. Yanez, ERCP, sphincterotomy, stent placement on 08/07/2018. HISTORY: A 38-year-old female with status post laparoscopic cholecystectomy and normal cholangiograms. Previous admission, presents with worsening unresolving pain with the above workup, undergoing the above procedure. Dr. Yanez discharged home with Levaquin 500 p.o. b.i.d. as well as her home medications of Plaquenil, tramadol, azathioprine, nifedipine, Arava, and tramadol. FOLLOWUP: She will follow up in my office in 1 to 2 weeks, Dr. Yanez in 4 weeks. Levaquin 500 p.o. daily for 5 days. Job ID: [id number]
[2018-08-09] MEDS: Lactated Ringer's 1,000 ML IV SCH ×3 (05:35→23:20)
[2018-08-09] MEDS ORDERED: Promethazine 25 MG TAB PO PRN (06:21)
[2018-08-09] MEDS ORDERED: Promethazine HCl 12.5 MG SUPP PR PRN (06:22)
[2018-08-09] MEDS ORDERED: Acetaminophen 1,000 MG in Premix Bag 1 BAG IVPB PRN (06:23)
[2018-08-09] MEDS: Promethazine HCl 25 MG/ML VIAL IM PRN ×3 (06:48→20:22)
[2018-08-09 07:52] LABS: ALT (SGPT) 66 U/L (8-55); AST (SGOT) 44 U/L (5-34); Albumin 2.9 g/dL (3.5-5.0); Alkaline Phosphatase 292 U/L (40-150); Bilirubin, Direct 1.9 mg/dL (0.1-0.3); Bilirubin, Total 3.2 mg/dL (0.2-1.2); Protein, Total 5.4 g/dL (6.0-8.3)
[2018-08-09] MEDS: azaTHIOprine 50 MG TAB PO SCH ×3 (09:21→20:30)
[2018-08-09] MEDS: NIFEdipine XL 30 MG TAB PO SCH (09:21)
[2018-08-09] MEDS: Hydroxychloroquine Sulfate 200 MG TAB PO SCH ×3 (09:21→20:30)
[2018-08-09] MEDS: Leflunomide 10 mg Tablet PO SCH (09:21)
[2018-08-09] MEDS: Ketorolac Tromethamine 30 MG/ML VIAL IVP PRN ×2 (13:53→20:21)
--- NOTE | 2018-08-09 15:37 | PRG ---
DATE OF SERVICE: 08/09/2018 SUBJECTIVE: Ms. Kirk complains of nausea, preventing discharge yesterday. IV fluids were restarted. This morning, her lipase is normal. Her bilirubin is increased from 2.7 yesterday to 3.2. Transaminases are decreased. She denies any significant abdominal pain. OBJECTIVE: LUNGS: Clear to auscultation. CARDIAC: Regular rate and rhythm without murmur or gallop. ABDOMEN: Soft, nondistended, and nontender. Trocar site, surgical, well healed. VITAL SIGNS: 98.5 degrees, 74, and 126/84. ASSESSMENT AND PLAN: Post endoscopic retrograde cholangiopancreatography; persistent nausea, requiring Zofran and Phenergan. The patient states she has had problems with nausea in the past, but none to this degree. I have discussed with Dr. Yanez, who will see her, consider possibility of repositioning the ERCP stent. Await his opinion. Job ID: [id number]
[2018-08-09] MEDS: Enoxaparin Sodium 40 MG/0.4 ML SYRINGE SC SCH (20:23)
[2018-08-10] MEDS: Promethazine HCl 25 MG/ML VIAL IM PRN ×3 (03:22→23:03)
[2018-08-10] MEDS: Ketorolac Tromethamine 30 MG/ML VIAL IVP PRN ×3 (03:22→23:03)
[2018-08-10] MEDS: Ondansetron PF 4 MG/2 ML Vial IVP PRN ×3 (05:28→19:28)
[2018-08-10 06:08] LABS: #Eosinphils 0.1 thou/uL (0.0-0.7); #Lymphocytes 0.4 thou/uL (1.20-3.40); #Monocytes 0.3 thou/uL (0.11-0.59); %Basophils 0.4 % (0.0-1.0); %Eosinophils 1.7 % (0.0-10.0); %Lymphocytes 7.2 % (21.0-51.0); %Monocytes 4.3 % (0.0-10.0); %Neutrophils 86.4 % (42.0-75.0); Mean Corpuscular HGB CONC 32.1 g/dL (32.0-36.0); Mean Corpuscular Hemoglobin 31.9 pg (27.0-31.0); Mean Corpuscular Volume 99.3 fL (78.0-98.0); Mean Platelet Volume 7.3 fL (7.4-10.4); Platelet Count 314 thou/uL (130-400); RBC Distribution Width 13.4 % (11.5-14.5); Red Blood Cell (RBC) Count 3.12 mill/uL (4.20-5.40); White Blood Cell (WBC) Count 5.8 thou/uL (4.8-10.8)
[2018-08-10 06:29] LABS: ALT (SGPT) 53 U/L (8-55); AST (SGOT) 35 U/L (5-34); Albumin 3.2 g/dL (3.5-5.0); Alkaline Phosphatase 281 U/L (40-150); Anion Gap 20 mmol/L (10-20); BUN (Urea Nitrogen) 4 mg/dL (7.0-18.7); Bilirubin, Total 2.5 mg/dL (0.2-1.2); Calc. Creatinine Clearance 150 mL/min (70-130); Calcium 8.6 mg/dL (7.8-10.44); Carbon Dioxide 16 mmol/L (22-29); Chloride 105 mmol/L (98-107); Estimated GFR-MDRD Greater than 90; Globulin 2.8 g/dL (2.4-3.5); Lipase 25 U/L (8-78); Potassium 3.3 mmol/L (3.5-5.1)
[2018-08-10 06:32] LABS: Glucose 42 mg/dL (70-105)
[2018-08-10 06:44] LABS: Sodium 138 mmol/L (136-145)
--- NOTE | 2018-08-10 07:35 | PRG ---
DATE OF SERVICE: 08/09/2018 SUBJECTIVE: This is a 38-year-old female with a bile leak. She had an ERCP with stent placement two days ago. The patient did well that evening and the impression she was supposed to go home yesterday. However, the patient was kept overnight because of the persistent nausea. I reviewed the ERCP with stent placement with one of our radiologist. The stent obviously is in good place and appears to be at both bifurcation. Her liver function tests, especially the transaminase are trending down. However, the bilirubin level is not coming down. It has gone up to 3.2 from 2.8. She has abdominal pain. She had mild nausea and vomiting. the stent has migrated proximally. OBJECTIVE: GENERAL: She had low-grade fever couple of days ago, but she remains afebrile today. VITAL SIGNS: Stable. CARDIOVASCULAR: First and second sounds heard. LUNGS: With normal respiratory effort. ABDOMEN: Soft. No organomegaly. No tenderness. No mass. The most recent lab data shows bilirubin going up to 3.2 from 2.8, although transaminase is trending down very nicely. AST down to 44 from 153, ALT down to 66 from 101, alkaline phosphatase down to 292. I reviewed the ERCP because again the stent appears to be in good place with bifurcation. I want this needs to be pull down little bit. I did speak to Ms. Kirk about EGD and possibly trying to pull that stent out little bit. She is agreeable. I will plan for the procedure later today. Job ID: [id number]
[2018-08-10] MEDS: Hydroxychloroquine Sulfate 200 MG TAB PO SCH ×2 (08:22→20:10)
[2018-08-10] MEDS: azaTHIOprine 50 MG TAB PO SCH ×2 (08:22→20:10)
[2018-08-10] MEDS: NIFEdipine XL 30 MG TAB PO SCH (08:23)
[2018-08-10] MEDS: Leflunomide 10 mg Tablet PO SCH (08:23)
[2018-08-10] MEDS: Lactated Ringer's 1,000 ML IV SCH ×2 (08:55→18:48)
[2018-08-10] MEDS ORDERED: Fentanyl 100 MCG/2 ML VIAL ONE (09:05)
[2018-08-10] MEDS ORDERED: Promethazine HCl 25 MG/ML VIAL IM PRN (10:40)
[2018-08-10] MEDS ORDERED: Ondansetron HCl/PF 4 MG/2 ML Vial IVP PRN (10:40)
[2018-08-10] MEDS ORDERED: Promethazine HCl 25 MG/ML VIAL SLOW IVP PRN (10:40)
--- NOTE | 2018-08-10 13:07 | RAD ---
KUB: HISTORY: Evaluation of biliary stent placement. FINDINGS: The bowel gas pattern is nonobstructive. Postop cholecystectomy change is seen. Biliary stent is se en in the right upper quadrant. It appears to be in good position. IMPRESSION: Biliary stent, which appears to be in fairly good position. POS: MARGARITO
[2018-08-10] MEDS ORDERED: Lidocaine 1% PF 5 ML VIAL ONE (13:11)
[2018-08-10] MEDS ORDERED: PROPOFOL 200 MG/20 ML VIAL ONE (13:11)
--- NOTE | 2018-08-10 17:43 | OP ---
DATE OF PROCEDURE: 08/10/2018 PROCEDURES PERFORMED: 1. Esophagogastroduodenoscopy. 2. Repositioning of the biliary stent because of nausea and vomiting. PREOPERATIVE DIAGNOSES: A 38-year-old female, status post laparoscopic cholecystectomy about 10 days ago, came with abdominal pain and was found to have a bile leak. The patient underwent ERCP with stent placement done 3 days ago. Although her liver function tests are getting better, she continues to have severe nausea and vomiting. The patient is undergoing EGD. POSTOPERATIVE DIAGNOSES: 1. Large amount of bile in the stomach which was suctioned out. 2. Gastritis of the pyloric opening. 3. Stent appears to be in good position, but it was decided to pull it out a little bit using a polypectomy snare. DESCRIPTION OF PROCEDURE: The patient was placed on the left lateral position after given sedation by Anesthesia Department. Pentax video gastroscope under direct vision, was passed down the oropharynx past the GE junction into the stomach and subsequently into the descending duodenum. The esophageal mucosa appeared normal. GE junction, no pathology seen. The patient had a large amount of bile, which was suctioned out. The fundus and cardia, no pathology seen. The gastric body, no pathology seen. The gastric edema and erythema on the pyloric opening. The biliary stent appeared to be in good position. There was good biliary drainage noted. Because of persistent nausea and vomiting, it was elected to pass a polypectomy snare and stent was pulled out slightly into the duodenum. The stomach decompressed and the scope removed. RECOMMENDATIONS: 1. Abdominal KUB to confirm the stent position. 2. Diet as tolerated. 3. If she has no nausea or vomiting, may consider discharge home. Job ID: [id number]
--- NOTE | 2018-08-10 19:11 | PRG ---
DATE OF SERVICE: 08/10/2018 SUBJECTIVE: Ms. Kirk still complains of nausea today. Dr. Yanez repositioned her ERCP stent in hopes it would help her symptoms. This morning, her bilirubin was slightly diminished from yesterday. At time of operation, there was large amount of bile in the stomach that was suctioned. There was mild gastritis in the pyloric opening. The stent appeared to be in good position. Temperature 98.2 degrees, 70, 142/89. White count 5, hemoglobin 10. Bilirubin 2.5, decreased from 3.2 yesterday. PHYSICAL EXAMINATION: LUNGS: Clear to auscultation. CARDIAC: Regular rate and rhythm without murmur or gallop. ABDOMEN: Soft nontender, and nondistended. EXTREMITIES: Unremarkable. ASSESSMENT AND PLAN: Persistent nausea and vomiting. She has diet as tolerated. We will recheck her liver function test tomorrow. Hopefully, she will feel better in the morning and be able to be discharged home. Job ID: [id number]
[2018-08-10] MEDS: Enoxaparin Sodium 40 MG/0.4 ML SYRINGE SC SCH (20:10)
[2018-08-11] MEDS: Ondansetron PF 4 MG/2 ML Vial IVP PRN ×2 (06:26→15:30)
[2018-08-11] MEDS: Lactated Ringer's 1,000 ML IV SCH (06:27)
[2018-08-11 06:51] LABS: ALT (SGPT) 38 U/L (8-55); AST (SGOT) 27 U/L (5-34); Albumin 3.2 g/dL (3.5-5.0); Alkaline Phosphatase 237 U/L (40-150); Bilirubin, Direct 1.1 mg/dL (0.1-0.3); Bilirubin, Total 1.6 mg/dL (0.2-1.2); Protein, Total 5.8 g/dL (6.0-8.3)
[2018-08-11] MEDS: azaTHIOprine 50 MG TAB PO SCH ×2 (09:59→20:37)
[2018-08-11] MEDS: Hydroxychloroquine Sulfate 200 MG TAB PO SCH ×2 (09:59→20:37)
[2018-08-11] MEDS: Leflunomide 10 mg Tablet PO SCH (09:59)
[2018-08-11] MEDS: NIFEdipine XL 30 MG TAB PO SCH (10:00)
[2018-08-11] MEDS: Promethazine HCl 25 MG/ML VIAL IM PRN (12:04)
[2018-08-11] MEDS: Ketorolac Tromethamine 30 MG/ML VIAL IVP PRN (15:32)
--- NOTE | 2018-08-11 16:39 | PRG ---
DATE OF SERVICE: 08/11/2018 SUBJECTIVE: I am meeting Ms. Kirk for the first time this afternoon. She tells me that she feels a little bit better than yesterday. She was able to tolerate this morning, but she did have another episode of vomiting after trying some pasta for lunch today. She continues to have some epigastric pain. OBJECTIVE: VITAL SIGNS: Temperature 98.4, pulse 63, blood pressure 144/91, and 96% oxygen saturation on room air. GENERAL: In no acute distress. HEART: Regular rate and rhythm. LUNGS: Clear to auscultation bilaterally. ABDOMEN: Bowel sounds are present. Soft. Some tenderness to palpation in the epigastrium. No guarding or rebound tenderness. EXTREMITIES: No peripheral edema. LABORATORY STUDIES: LFTs continue to improved with total bilirubin down to 1.6, alkaline phosphatase 237, AST 27, ALT 38, albumin 3.2. WBC 5.8, hemoglobin 10.0, and platelets 314. ASSESSMENT AND PLAN: 1. Postoperative bile leak, status post biliary stent placement on 08/07/2018, performed by Dr. Yanez. 2. Prepyloric gastritis, visualized on EGD yesterday. 3. Postoperative nausea and vomiting, slowing improving. The patient will continue to advance her diet slowly. Continue with supportive care, antiemetics. Laboratory trends were all favorable. Okay for discharge from a GI standpoint and the patient is tolerating her diet a bit better. Still planning for her to follow up with Dr. Yanez in about a month for stent removal. Job ID: [id number]
--- NOTE | 2018-08-11 16:51 | PRG ---
DATE OF SERVICE: 08/11/2018 SUBJECTIVE: Ms. Kirk is doing well today. Her nausea is slightly improved. She is able to tolerate some liquids today. She does not have an emesis bag near her. OBJECTIVE: VITAL SIGNS: This morning, temperature 98.3 degrees, pulse 74, and blood pressure 146/86. LUNGS: Clear to auscultation. CARDIAC: Regular rate and rhythm without murmur or gallop. ABDOMEN: Soft, nontender, and nondistended. Surgical wounds well healed. LABORATORY DATA: This morning, her white count is 5, hemoglobin 10. This morning, her bilirubin is 1.6. Transaminases have normalized. ASSESSMENT AND PLAN: She is doing well today. Advance her diet as tolerated. We will discontinue her intravenous antibiotics hoping that will help alleviate some of her symptoms. We will stop her IV fluids. We will advance her diet as tolerated. Hope would be that she might be able to go home today, pending her diet tolerance. She should follow up in my office in 2 to 3 weeks. Follow up with Dr. Yanez in about 4 weeks to arrange stent removal. Job ID: [id number]
[2018-08-11] MEDS: traMADol HCl 50 MG TAB PO PRN (18:44)
[2018-08-11] MEDS: Ibuprofen 600 MG TAB PO PRN (18:45)
[2018-08-11] MEDS: Acetaminophen 500 MG TAB PO PRN (18:45)
[2018-08-11] MEDS: Enoxaparin Sodium 40 MG/0.4 ML SYRINGE SC SCH (20:37)
[2018-08-12] MEDS: Leflunomide 10 mg Tablet PO SCH (09:27)
[2018-08-12] MEDS: azaTHIOprine 50 MG TAB PO SCH (09:27)
[2018-08-12] MEDS: NIFEdipine XL 30 MG TAB PO SCH (09:27)
[2018-08-12] MEDS: Hydroxychloroquine Sulfate 200 MG TAB PO SCH (09:27)
[2018-08-12 11:24] VITALS: BP 142/91; TEMP 98.1
[2018-08-12] MEDS: traMADol HCl 50 MG TAB PO PRN (12:45)
[2018-08-12] MEDS: Ibuprofen 600 MG TAB PO PRN (12:45)
--- NOTE | 2018-08-12 14:28 | PRG ---
DATE OF SERVICE: 08/12/2018 TYPE OF REPORT: GI inpatient daily progress note SUBJECTIVE: Ms. Kirk is feeling a lot better today. She was able to tolerate her diet with no nausea or vomiting. Minimal abdominal discomfort. She is feeling more energetic and would like to go home. OBJECTIVE: VITAL SIGNS: Temperature 98.1, pulse 60, blood pressure 142/91, and 97% oxygen saturation on room air. GENERAL: No acute distress. HEART: Regular rate and rhythm. LUNGS: Clear to auscultation bilaterally. ABDOMEN: Soft. Nontender to palpation. EXTREMITIES: No peripheral edema. ASSESSMENT AND PLAN: 1. Postoperative bile leak, status post biliary stent placement on 08/07/2018. 2. Pre-pyloric gastritis. 3. Postoperative nausea and vomiting, improving. The patient is feeling a lot better and tolerating her diet. From a GI perspective, I think she could be safely discharged from the hospital. I did remind her to follow up with Dr. Yanez as planned in about a month for stent removal. Job ID: [id number]
--- NOTE | 2018-08-13 09:38 | DIS ---
DATE OF ADMISSION: 08/06/2018 DATE OF DISCHARGE: 08/12/2018 ADDENDUM: DISCHARGE DIAGNOSES: 1. Post laparoscopic cholecystectomy, bile leak, post endoscopic retrograde cholangiopancreatography sphincterotomy, nausea, requiring reposition of the stent. 2. Fibromyalgia, lupus. Note, the patient was initially thought to be ready for discharge on 08/08/2018, but she had persistent nausea. Dr. Yanez took her back to the operating room, endoscopically repositioned her stent. She had persistent nausea until today when she finally feels well enough to go home. She is sent home today on Ultram, Tylenol, and Motrin for pain. She will follow up in my office as needed. Follow up Dr. Yanez in 3 to 4 weeks. See previous history for details. Job ID: [id number]
== END 2018-08-12 15:00 | disposition home or self-care (01) | DRG 394 ==
LOC: SURG A 15:35
PROVIDERS: ADMIT Specialist; ATTEND Specialist
PROC: 0F798DZ Dilation of Common Bile Duct with Intraluminal Device, Via Natural or Artificial Opening Endoscopic (ICD-10-PCS; principal; 2018-08-07)
PROC: 0DC98ZZ Extirpation of Matter from Duodenum, Via Natural or Artificial Opening Endoscopic (ICD-10-PCS; 2018-08-10)
DX: K91.89 Other postprocedural complications and disorders of digestive system (principal); T85.520A Displacement of bile duct prosthesis, initial encounter; K83.8 Other specified diseases of biliary tract; Z90.49 Acquired absence of other specified parts of digestive tract; K29.70 Gastritis, unspecified, without bleeding; M32.9 Systemic lupus erythematosus, unspecified; I73.00 Raynaud's syndrome without gangrene; R11.2 Nausea with vomiting, unspecified; M34.9 Systemic sclerosis, unspecified; M79.7 Fibromyalgia; M35.00 Sjogren syndrome, unspecified; F17.210 Nicotine dependence, cigarettes, uncomplicated; Z79.52 Long term (current) use of systemic steroids; Y83.6 Removal of other organ (partial) (total) as the cause of abnormal reaction of the patient, or of later complication, without mention of misadventure at the time of the procedure
CPT/HCPCS: 36415; 36416; 74018; 74330; 78226; 80053; 80076; 82150; 83690; 85025; A9537; J0131; J1100; J1170; J1650; J1885; J1956; J2001; J2270; J2405; J2550; J2704; J3010; J7500; Q0162; Q9961; S0028

== ENCOUNTER 2018-10-24 11:36 | Day surgery (SDC) | payer MEDICARE ==
--- NOTE | 2018-10-23 09:52 | HP ---
HISTORY: This is a 38-year-old female, who had a gallstone pancreatitis in 2018. The patient underwent laparoscopic cholecystectomy by Dr. Yo in August of 2018. She came back to the hospital with bile leak. She underwent ERCP and stent placement done by me in August of 2018. She has done well after the stent placement. She had no abdominal pain. No nausea or vomiting. The patient was seen by me I think a month ago. She was advised to come back for ERCP and stent removal. Initially she declined having the procedure done due to financial reasons; however, I explained her the need for dual stent placement and the potential for cholangitis. She agreed to come back for ERCP and stent removal. ALLERGIES: SULFA. MEDICAL ILLNESSES: 1. Hypertension. 2. Gallstone pancreatitis in 2018. 3. Scleroderma. 4. Questionable history of lupus. 5. Raynaud syndrome. PHYSICAL EXAMINATION: VITAL SIGNS: Pulse is 70, blood pressure 130/80. HEENT: Conjunctivae clear. CARDIOVASCULAR: First and second heart sounds were heard. LUNGS: Clear to auscultation. ABDOMEN: Soft. No organomegaly. No tenderness. No masses. ADMITTING DIAGNOSIS: A 38-year-old female, status post laparoscopic cholecystectomy, bile leak in the August of 2018. She underwent endoscopic retrograde cholangiopancreatography and stent placement in August of 2018. The patient comes for endoscopic retrograde cholangiopancreatography and stent removal. Job ID: [id number]
[2018-10-23 12:42] VITALS: BMI 24.4
[2018-10-24 12:51] LABS: BHCG - Serum Negative (NEGATIVE); Pregs Control Background? CLEAR/WHITE (CLR/WHITE); Pregs Control Bar Appear? YES (CONTROL BAR)
[2018-10-24] MEDS ORDERED: Iothalamate Meglumine 60% 50 ML VIAL FS ONE (12:54)
[2018-10-24] MEDS ORDERED: Fentanyl 100 MCG/2 ML VIAL ONE ×2 (13:34→14:12)
[2018-10-24] MEDS ORDERED: Famotidine/PF 20 mg/2ml Vial ONE (13:34)
[2018-10-24] MEDS ORDERED: Promethazine HCl 25 MG/ML VIAL ONE (14:16)
[2018-10-24] MEDS ORDERED: Chloraseptic Spray 180 ml Bottle PO PRN (14:18)
[2018-10-24] MEDS ORDERED: PROPOFOL 200 MG/20 ML VIAL ONE (15:47)
[2018-10-24] MEDS ORDERED: Ondansetron PF 4 MG/2 ML Vial ONE (15:47)
[2018-10-24] MEDS ORDERED: Lidocaine 1% PF 5 ML VIAL ONE (15:47)
[2018-10-24] MEDS ORDERED: Glycopyrrolate 0.2 MG/ML 5 ML SYRINGE ONE (15:47)
[2018-10-24] MEDS ORDERED: Rocuronium Bromide 10 MG/ML (10ML VIAL) ONE (15:47)
--- NOTE | 2018-10-24 15:50 | RAD ---
ERCP: 10/24/18 COMPARISON: 08/07/18. HISTORY: Biliary obstruction, history of biliary stent. FINDINGS: Five images from an ERCP are provided. There is mild prominence of a proximal left intrahepatic bilia ry duct which may be on the basis of superimposition of multiple ducts. No extraluminal contrast medi a is seen. There is some contrast media in the duodenum and there is contrast media opacifying the pr oximal intrahepatic biliary tree as well as the common bile duct. There is a persistent irregular are as of incomplete filling involving the distal most aspect of the CBD. There appears to be a balloon i nflated within the CBD in this region on image 4 of 5. IMPRESSION: Persistent area of irregularity involving the proximal CBD. This may signify an underlying stricture of the CBD or scarring. Correlation with real time imaging is essential. POS: MARGARITO
--- NOTE | 2018-10-25 10:08 | OP ---
DATE OF PROCEDURE: 10/24/2018 OPERATIVE PROCEDURE: Endoscopic retrograde cholangiopancreatography with stent removal. PREOPERATIVE DIAGNOSIS: A 38-year-old female with status post laparoscopic cholecystectomy in August 2018 and has had a bile leak. She underwent ERCP with stent placement. The patient comes for stent removal and ERCP. POSTOPERATIVE DIAGNOSES: 1. Normal cholangiogram. 2. Status post removal of bile duct stent without any difficulty. DESCRIPTION OF PROCEDURE: The patient was intubated and was given sedation by Anesthesia Department. The patient was transferred to the fluoroscopy table and was made to lie on her stomach. A bite block was placed. A [employer] video duodenoscope under direct vision was passed down the oropharynx past the GE junction into the stomach and subsequently into the descending duodenum. The previously-placed biliary stent appears in good position and good biliary drainage noted. The stent was removed using a polypectomy snare. The scope was then removed. The patient was re-scoped again and scope advanced back into descending duodenum. There was good biliary drainage noted. The papillotome was easily cannulated, the CBD selected. Injection shows normal common bile duct and there was no definite leakage. All because of previous papillotomy . The papillotome was exchanged into the biliary balloon size 9 to 12 mm. The balloon was easily advanced in the common bile duct. Occlusion cholangiogram shows no filling defects. After removal of the balloon, there was prompt emptying of the common bile duct. The stomach decompressed and the scope removed. DISCHARGE PLANNING: This is a 38-year-old female with previously placed biliary stent, came for ERCP and she underwent ERCP and the stent was removed. DISCHARGE RECOMMENDATIONS: 1. The patient was advised to call me if she develops abdominal pain, hematochezia. 2. In the absence of any of the above symptoms, come back to me in 2 weeks. Job ID: [id number]
== END 2018-10-24 17:15 | disposition home or self-care (01) ==
LOC: SDC 11:36
PROVIDERS: ATTEND Internal Medicine Gastroenterology
PROC: 0FPB8DZ Removal of Intraluminal Device from Hepatobiliary Duct, Via Natural or Artificial Opening Endoscopic (ICD-10-PCS; principal; 2018-10-24)
DX: Z46.59 Encounter for fitting and adjustment of other gastrointestinal appliance and device (principal); I10 Essential (primary) hypertension; I73.00 Raynaud's syndrome without gangrene; Z88.2 Allergy status to sulfonamides; Z90.49 Acquired absence of other specified parts of digestive tract
CPT/HCPCS: 74330; 84703; J0131; J2001; J2405; J2550; J2704; J3010; Q9961; S0028

== ENCOUNTER 2023-04-05 08:59 | Emergency (ER) | payer MEDICARE, BC ==
[~2023-04-05 08:59] MED LIST: Iopamidol-370 76% 500 ML MDV (1 ML CHARGE) ONE
[2023-04-05] MEDS ORDERED: Ketorolac Tromethamine 30 MG/ML VIAL ONE (10:27)
[2023-04-05] MEDS ORDERED: Dexamethasone 4 mg/ml Vial ONE (10:32)
[2023-04-05 11:11] LABS: Pregnancy Test - Urine (BHCG) Negative (Negative); Pregu Control Background? CLEAR/WHITE (CLR/WHITE); Pregu Control Bar Appear? YES (CONTROL BAR); Specific Gravity 1.024 (1.002-1.036)
[2023-04-05 11:47] LABS: #Monocytes 1.1 thou/uL (0.11-0.59); #Neutrophils 6.6 thou/uL (1.40-6.50); %Basophils 0.3 % (0.0-1.0); %Eosinophils 0.3 % (0.0-10.0); %Monocytes 11.7 % (0.0-10.0); %Neutrophils 73.3 % (42.0-75.0); Hemoglobin 10.5 g/dL (12.0-16.0); Mean Corpuscular HGB CONC 33.7 g/dL (32.0-36.0); Mean Corpuscular Volume 95.1 fl (78.0-98.0); Mean Platelet Volume 9.5 fL (7.4-10.4); Platelet Count 290 10x3/uL (130-400); RBC Distribution Width 13.6 % (11.5-14.5); Red Blood Cell (RBC) Count 3.28 mill/uL (4.20-5.40)
[2023-04-05 12:23] LABS: ALT (SGPT) 15 U/L (8-55); AST (SGOT) 25 U/L (5-34); Albumin 3.7 g/dL (3.5-5.0); Alkaline Phosphatase 88 U/L (40-110); Anion Gap 16 mmol/L (10-20); BUN (Urea Nitrogen) 11 mg/dL (7.0-18.7); CK (CPK) 40 U/L (29-168); CRP (Inflammatory) 16.79 mg/dL (= or < 0.5); Calc. Creatinine Clearance 0 mL/min (70-130); Carbon Dioxide 20 mmol/L (22-29); Chloride 104 mmol/L (98-107); Estimated GFR 111; Globulin 3.3 g/dL (2.4-3.5); Glucose 86 mg/dL (70-105); Potassium 3.8 mmol/L (3.5-5.1); Sodium 136 mmol/L (136-145)
[2023-04-05] MEDS ORDERED: Morphine 4 MG/ML VIAL ONE (13:03)
== END 2023-04-05 14:31 | disposition home or self-care (01) ==
LOC: ERS 08:59
DX: L04.9 Acute lymphadenitis, unspecified (principal); M54.2 Cervicalgia; Z87.891 Personal history of nicotine dependence
CPT/HCPCS: 70491; 80053; 81025; 82550; 85025; 85652; 86140; 87081; 87430; 96374; 96375; J1100; J1885; J2270; Q9967